=== PATIENT | male | born 1955 | race Two or more races ===

== ENCOUNTER 2023-03-04 11:21 | Emergency (ER) | payer OTHER ==
[~2023-03-04] VITALS: Ht 170.2 cm; Wt 85.3 kg
== END 2023-03-04 13:42 | disposition home or self-care (01) ==
LOC: ER 11:21
DX: K01.1 Impacted teeth (principal); E11.9 Type 2 diabetes mellitus without complications; E03.9 Hypothyroidism, unspecified; I10 Essential (primary) hypertension

== ENCOUNTER 2024-11-23 14:50 | Emergency (ER) | payer OTHER ==
[~2024-11-23] VITALS: Ht 170.2 cm; Wt 84.4 kg
[2024-11-23] MEDS ORDERED: LOSARTAN POTAS100 MG PO (15:08)
[2024-11-23] MEDS ORDERED: SYNJARDY XR 121 EACH PO (15:09)
[2024-11-23] MEDS ORDERED: NORVASC2.5 M1 (15:09)
[2024-11-23] MEDS ORDERED: FAMOtidine 10 MG/ML (4ML VIAL) IV ONE (16:15)
[2024-11-23] MEDS ORDERED: ONDANSETRON HCL 2 MG/ML VIAL IV ONE (16:15)
[2024-11-23] MEDS ORDERED: FAMOTIDINE/PF 20 MG/2 ML VIAL ONE (16:55)
[2024-11-23] MEDS ORDERED: ONDANSETRON HCL 2 MG/ML VIAL ONE (16:55)
[2024-11-23 17:42] LABS: HEMATOCRIT 33.2 % (39.0-48.0); HEMOGLOBIN 10.4 g/dL (13-16.00); MEAN CELL VOLUME 75.2 fL (80.0-100.00); MEAN CORPUSCULAR HEMOGLOBIN 23.5 pg (27.00-32.0); MEAN CORPUSCULAR HGB CONC 31.2 g/dl (32.0-36.0); PLATELET COUNT 195 K/uL (150-450); RED BLOOD COUNT 4.42 M/uL (4.00-6.00)
[2024-11-23 17:54] LABS: ALBUMIN 3.7 gm/dL (3.4-5.0); BILIRUBIN TOTAL 1.12 mg/dL (0.3-1.2); CALCIUM 9.2 mg/dL (8.5-10.1); CREATININE SERUM 0.72 mg/dL (0.70-1.30); GFR 108.56; GLOBULINA 3.7 G/DL (2.4-3.5); POTASSIUM 3.96 mEq/L (3.5-5.1); TOTAL PROTEIN 7.4 gm/dL (6.4-8.2)
[2024-11-23] MEDS ORDERED: PROBIOTIC1 EAC2 PO (18:50)
[2024-11-23] MEDS ORDERED: PEPCID AC20 MG PO (18:50)
[2024-11-23] MEDS ORDERED: ZOFRAN8 MG PO (18:50)
== END 2024-11-23 19:13 | disposition home or self-care (01) ==
LOC: ER 14:53
PROVIDERS: General Practice
DX: K52.89 Other specified noninfective gastroenteritis and colitis (principal); Z20.822 Contact with and (suspected) exposure to COVID-19; I10 Essential (primary) hypertension; E11.9 Type 2 diabetes mellitus without complications; Z79.84 Long term (current) use of oral hypoglycemic drugs

== ENCOUNTER 2025-02-20 11:36 | Emergency (ER) | payer OTHER ==
[~2025-02-20] VITALS: Ht 170.2 cm; Wt 84.4 kg
[~2025-02-20 11:36] MED LIST: LOSARTAN POTAS100 MG PO; NORVASC2.5 M1; PEPCID AC20 MG PO; PROBIOTIC1 EAC2 PO; SYNJARDY XR 121 EACH PO; ZOFRAN8 MG PO
[2025-02-20] MEDS ORDERED: CRESTOR40 MG PO (13:10)
[2025-02-20] MEDS ORDERED: GLIMEPIRIDE1 MG (13:10)
[2025-02-20] MEDS ORDERED: SYNJARDY 12.5-1 EACH (13:10)
[2025-02-20] MEDS ORDERED: INTEGRA PLUS C1 EACH (13:11)
[2025-02-20] MEDS ORDERED: TAMS0.4C PO (13:11)
[2025-02-20] MEDS ORDERED: ZIAC (13:11)
[2025-02-20] MEDS ORDERED: ACETAMINOPHEN 500 MG GEL..CAP PO STA (13:33)
[2025-02-20] MEDS ORDERED: KETOROLAC TROMETHAMINE 15 MG VIAL IM STA (13:33)
[2025-02-20] MEDS ORDERED: KETOROLAC TROMETHAMINE 30 MG VIAL ONE (13:43)
[2025-02-20] MEDS ORDERED: ACETAMINOPHEN 500 MG GEL..CAP PO ONE (13:44)
[2025-02-20] MEDS ORDERED: CLEOCIN HCL300 MG PO (13:45)
[2025-02-20] MEDS ORDERED: TRAM1TAB98 PO (13:46)
== END 2025-02-20 14:11 | disposition home or self-care (01) ==
LOC: ER 12:05
DX: K05.30 Chronic periodontitis, unspecified (principal); K05.6 Periodontal disease, unspecified; E11.9 Type 2 diabetes mellitus without complications; Z79.84 Long term (current) use of oral hypoglycemic drugs